=== PATIENT | female | born 1985 | race Caucasian/White ===

== ENCOUNTER 2017-04-30 07:31 | Emergency (ER) | payer MEDICAID ==
[~2017-04-30] VITALS: Ht 170.2 cm; Wt 123.0 kg
[~2017-04-30 07:31] MED LIST: ACET325 PO; DOCO200C PO; IBUP600 PO; ZANT300T PO
[2017-04-30 07:36] VITALS: BP 161/107; PULSE 122; RESP 16; TEMP 98.2; O2SAT 95
[2017-04-30] MEDS ORDERED: MIREIUD I-UTERINE (07:39)
[2017-04-30] MEDS ORDERED: SODIUM CHLOR 0.9% 1000 ML INJ 1,000 ML IV ONE ×2 (07:55→09:15)
[2017-04-30] MEDS ORDERED: SODIUM CHLORIDE 0.9% FLUSH 10 ML FLUSH IVF PRN (08:00)
[2017-04-30] MEDS ORDERED: ONDANSETRON HCL 4 MG/2 ML VIAL IV PUSH ONE (08:00)
--- NOTE | 2017-04-30 08:01 | PD ---
HPI . Vomiting Chief Complaint: Cold / Flu Symptoms Time Seen by Provider: 07:46 Travel History International Travel<30 days: No Contact w/Intl Traveler<30days: No Traveled to known affect area: No History of Present Illness HPI This patient presents with a chief complaint of vomiting. Onset was 3 days ago. She states that she really didn't have very much vomiting 2 days ago but it started again yesterday. She reports approximately 5 episodes of emesis today. She describes the emesis as frothy and thick. She does not describe to bilious emesis. She reports a couple of loose stools this morning. She does not really have nausea. She denies abdominal pain. She has a cough but does not have any shortness of breath or chest pain. Her emesis for the last 2 days has been associated with cough. However, she reports episodic emesis for the last year or so. The emesis that she's had the last few days is different. PFSH Past Medical History Diminished Hearing: No Immunizations Current: No Influenza Vaccination: No ?: Not LMP: mirena : 0 Past Surgical History Surgical History: No Previous Surgery Social History Alcohol Use: No Tobacco Use: No Substance Use: No Allergies-Medications (Allergen,Severity, Reaction): Coded Allergies: bee venom protein (honey bee) (Unverified Allergy, Severe, 04/30/17) Reported Meds & Prescriptions Reported Meds & Active Scripts Active Promethazine-Dextromethorphan Liq (Dextromethorphan-Promethazine Liq) 6.25-15 Mg /5 Ml Syrp 10 Ml PO Q6HR Zofran (Ondansetron HCl) 4 Mg Tab 4 Mg PO Q6HR PRN Reported Mirena (Levonorgestrel (Iud)) 20 Mcg/24 Hour (5 Years) Iud 1 Ea I-UTERINE ONCE Review of Systems Except as stated in HPI: all other systems reviewed are Neg General / Constitutional: No: Fever, Chills Cardiovascular: No: Chest Pain or Discomfort Respiratory: Positive: Cough, No: Shortness of Breath Gastrointestinal: Positive: Vomiting, Diarrhea, No: Abdominal Pain Physical Exam Narrative GENERAL: Patient has a very deep cough which is frequently followed by dry heaves. SKIN: warm/dry. Normal color. HEAD: Normocephalic. Atraumatic. EYES: Pupils equal and round. No scleral icterus. No injection or drainage. ENT: No nasal bleeding or discharge. Mucous membranes pink and moist. NECK: Trachea midline. Full range of motion without pain.. CARDIOVASCULAR: Sinus tachycardia at about 120. RESPIRATORY: No accessory muscle use. Clear to auscultation. Breath sounds equal bilaterally. GASTROINTESTINAL: Abdomen soft. Nontender. Bowel sounds present. Nondistended. MUSCULOSKELETAL: No obvious deformities. NEUROLOGICAL: Awake and alert. No obvious cranial nerve deficits. Motor grossly within normal limits. Normal speech. PSYCHIATRIC: Appropriate mood and affect; insight and judgment normal. Data Data Last Documented VS Vital Signs Date Time Temp Pulse Resp B/P (MAP) Pulse Ox O2 Delivery O2 Flow Rate FiO2 04/30/17 09:06 97 18 98 Room Air 04/30/17 07:36 98.2 Orders Orders Complete Blood Count With Diff (04/30/17 07:55) Comprehensive Metabolic Panel (04/30/17 07:55) Urinalysis - C+S If Indicated (04/30/17 07:55) Iv Access Insert/Monitor (04/30/17 07:55) Ondansetron Inj (Zofran Inj) (04/30/17 08:00) Sodium Chlor 0.9% 1000 Ml Inj (Ns 1000 M (04/30/17 07:55) Sodium Chloride 0.9% Flush (Ns Flush) (04/30/17 08:00) Chest, Pa & Lat (04/30/17 07:55) Ed Urine Pregnancytest Poc (04/30/17 07:55) Sodium Chlor 0.9% 1000 Ml Inj (Ns 1000 M (04/30/17 09:15) Labs Laboratory Tests Test 04/30/17 08:00 04/30/17 08:05 White Blood Count 15.6 TH/MM3 Red Blood Count 5.27 MIL/MM3 Hemoglobin 14.9 GM/DL Hematocrit 45.6 % Mean Corpuscular Volume 86.5 FL Mean Corpuscular Hemoglobin 28.3 PG Mean Corpuscular Hemoglobin Concent 32.7 % Red Cell Distribution Width 12.5 % Platelet Count 221 TH/MM3 Mean Platelet Volume 9.0 FL Neutrophils (%) (Auto) 81.6 % Lymphocytes (%) (Auto) 9.3 % Monocytes (%) (Auto) 5.2 % Eosinophils (%) (Auto) 3.1 % Basophils (%) (Auto) 0.8 % Neutrophils # (Auto) 12.8 TH/MM3 Lymphocytes # (Auto) 1.4 TH/MM3 Monocytes # (Auto) 0.8 TH/MM3 Eosinophils # (Auto) 0.5 TH/MM3 Basophils # (Auto) 0.1 TH/MM3 CBC Comment DIFF FINAL Differential Comment Blood Urea Nitrogen 21 MG/DL Creatinine 0.89 MG/DL Random Glucose 139 MG/DL Total Protein 8.0 GM/DL Albumin 3.7 GM/DL Calcium Level 8.7 MG/DL Alkaline Phosphatase 80 U/L Aspartate Amino Transf (AST/SGOT) 27 U/L Alanine Aminotransferase (ALT/SGPT) 62 U/L Total Bilirubin 0.5 MG/DL Sodium Level 139 MEQ/L Potassium Level 3.6 MEQ/L Chloride Level 103 MEQ/L Carbon Dioxide Level 26.4 MEQ/L Anion Gap 10 MEQ/L Estimat Glomerular Filtration Rate 74 ML/MIN Urine Color YELLOW Urine Turbidity CLEAR Urine pH 5.5 Urine Specific [place] 1.023 Urine Protein TRACE mg/dL Urine Glucose (UA) NEG mg/dL Urine Ketones NEG mg/dL Urine Occult Blood TRACE Urine Nitrite NEG Urine Bilirubin NEG Urine Leukocyte Esterase NEG Urine Squamous Epithelial Cells 6-8 /hpf Microscopic Urinalysis Comment CULT NOT INDICATED MDM Medical Decision Making Medical Screen Exam Complete: Yes Emergency Medical Condition: Yes Differential Diagnosis Differential diagnosis includes but is not limited to viral gastritis, food poisoning, pancreatitis, pneumonia, hepatitis, acute coronary syndrome, Narrative Course This patient presents with posttussive emesis for the last several days. She is tachycardic. She'll be treated with IV fluids and IV Zofran while awaiting her workup. Chest x-rays is being done to rule out pneumonia. Basic labs have also been ordered including a UA and test. CBC & BMP Diagram 04/30/17 08:00 Total Protein 8.0, Albumin 3.7, Calcium Level 8.7, Alkaline Phosphatase 80, Aspartate Amino Transf (AST/SGOT) 27, Alanine Aminotransferase (ALT/SGPT) 62 H, Total Bilirubin 0.5 UA is neg. She reports that she feels much better following 1 L fluid and IV Zofran. She has not yet had the urge to urinate. She will be given a second liter fluid. Last Impressions Chest X-Ray 04/30/17 [id number] Signed Impressions: Service Date/Time: Sunday, April 30, 2017 08:09 - CONCLUSION: 1. No acute cardiopulmonary disease. Cam Wilkerson MD Diagnosis Primary Impression: Post-tussive emesis Additional Impression: Dehydration Patient Instructions: Acute Cough (ED), Acute Nausea and Vomiting (DC), General Instructions Med/Other Pt SpecificInfo: Prescription(s) given Scripts Dextromethorphan-Promethazine Liq (Promethazine-Dextromethorphan Liq) 6.25-15 Mg /5 Ml Syrp 10 ML PO Q6HR for cough, #120 ML Prov: Rosenda Ochoa MD 04/30/17 Ondansetron (Zofran) 4 Mg Tab 4 MG PO Q6HR Y for NAUSEA OR VOMITING, #10 TAB 0 Refills Prov: Rosenda Ochoa MD 04/30/17 Disposition: 01 DISCHARGE HOME Condition: Stable Rosenda Ochoa MD Apr 30, 2017 08:01
[2017-04-30 08:19] LABS: BILIRUBIN, URINE NEG (NEG); GLUCOSE,URINE NEG (NEG); KETONE, URINE NEG (NEG); NITRITE,URINE NEG (NEG); PH, URINE 5.5 (5.0-8.5); URINE LEUKOCYTE ESTERASE NEG (NEG)
[2017-04-30 08:21] LABS: AUTOMATED NEUTROPHIL # 12.8 TH/MM3 (1.8-7.7); BASOPHIL # 0.1 TH/MM3 (0-0.2); BASOPHIL % 0.8 % (0.0-2.0); EOSINOPHIL # 0.5 TH/MM3 (0-0.4); EOSINOPHIL % 3.1 % (0.0-4.0); HEMATOCRIT 45.6 % (35.0-46.0); HEMOGLOBIN 14.9 GM/DL (11.6-15.3); LYMPH % 9.3 % (9.0-44.0); LYMPHOCYTE # 1.4 TH/MM3 (1.0-4.8); MEAN CELL VOLUME 86.5 FL (80.0-100.0); MEAN CORPUSCULAR HEMOGLOBIN 28.3 PG (27.0-34.0); MEAN CORPUSCULAR HGB CONC 32.7 % (32.0-36.0); MONO % 5.2 % (0.0-8.0); MONOCYTE # 0.8 TH/MM3 (0-0.9); NEUT % 81.6 % (16.0-70.0); PLATELET COUNT 221 TH/MM3 (150-450); RED BLOOD COUNT 5.27 MIL/MM3 (4.00-5.30); RED CELL DISTRIBUTION WIDTH 12.5 % (11.6-17.2); WHITE BLOOD COUNT 15.6 TH/MM3 (4.0-11.0)
[2017-04-30 08:26] LABS: BLOOD, URINE TRACE (NEG); URINE COLOR YELLOW (YELLW/STRAW)
[2017-04-30 08:28] LABS: CHLORIDE 103 MEQ/L (98-107); SODIUM (NA) 139 MEQ/L (136-145)
[2017-04-30 08:34] LABS: ALBUMIN 3.7 GM/DL (3.4-5.0); BICARBONATE 26.4 MEQ/L (21.0-32.0); BLOOD UREA NITROGEN 21 MG/DL (7-18); CALCIUM 8.7 MG/DL (8.5-10.1); GLUCOSE,RANDOM 139 MG/DL (74-106)
[2017-04-30 08:37] LABS: ALT (GPT) 62 U/L (10-53); AST (GOT) 27 U/L (15-37); CREATININE 0.89 MG/DL (0.50-1.00); GLOMERULAR FILTRATION RATE 74 ML/MIN (>89)
[2017-04-30 08:39] LABS: TOTAL BILIRUBIN ADULT 0.5 MG/DL (0.2-1.0)
[2017-04-30 08:40] LABS: ALKALINE PHOSPHATASE 80 U/L (45-117)
[2017-04-30 09:06] VITALS: PULSE 97; RESP 18; O2SAT 98
--- NOTE | 2017-04-30 09:15 | RADRPT ---
EXAM DATE/TIME: 04/30/2017 08:09 [facility] COMPARISON: No previous studies available for comparison. INDICATIONS : Vomiting, cough. MEDICAL HISTORY : None. SURGICAL HISTORY : None. ENCOUNTER: Initial ACUITY: 4 - 6 days PAIN SCORE: 0/10 LOCATION: Bilateral chest FINDINGS: PA and lateral views of the chest demonstrate the lungs to be symmetrically aerated without evidence of mass, infiltrate or effusion. The cardiomediastinal contours are unremarkable. Osseous structure s are intact. CONCLUSION: 1. No acute cardiopulmonary disease. Cam Wilkerson MD on April 30, 2017 at 9:12 Board Certified Radiologist. This report was verified electronically.
[2017-04-30] MEDS ORDERED: ZOFR4TAB PO (09:34)
[2017-04-30] MEDS ORDERED: PROMSYP3 PO (09:34)
== END 2017-04-30 10:18 | disposition home or self-care (01) ==
LOC: PHED 07:31
DX: E86.0 Dehydration (principal); R11.10 Vomiting, unspecified
CPT/HCPCS: 71046; 80053; 81001; 84703; 85025; 96361; 96374; 99284; J2405; J7030

== ENCOUNTER 2017-05-30 06:47 | Emergency (ER) | payer MEDICAID ==
[~2017-05-30] VITALS: Ht 170.2 cm; Wt 124.0 kg
[~2017-05-30 06:47] MED LIST changes: -ACET325 PO; -DOCO200C PO; -IBUP600 PO; +MIREIUD I-UTERINE; +PROMSYP3 PO; -ZANT300T PO; +ZOFR4TAB PO
[2017-05-30 06:51] VITALS: PULSE 114; RESP 16; TEMP 98; O2SAT 95
[2017-05-30] MEDS ORDERED: ONDANSETRON HCL 4 MG/2 ML VIAL IV PUSH ONE (07:15)
[2017-05-30] MEDS ORDERED: MORPHINE SULFATE 4 MG/ML INJ IV PUSH ONE (07:15)
--- NOTE | 2017-05-30 07:20 | PD ---
HPI Chief Complaint: GI Complaint Time Seen by Provider: 06:59 Travel History International Travel<30 days: No Contact w/Intl Traveler<30days: No Traveled to known affect area: No History of Present Illness HPI 31 y/o female presents with vomiting and right upper quadrant pain over the past couple of days. She states she has been experiencing this intermittently over the past couple weeks for quite a while. She states that last time she was here she had more nasal congestion and cough and she still has some but is having more vomiting and abdominal pain now. She denies any fever or other concurrent complaints other than intermittent nonbloody diarrhea. Quality is nonbloody. Severity is multiple episodes. She denies seeing a physician for this other than prior visit in the ER. She denies specific modifying factors that she can recall. PFS Past Medical History Medical History: Denies Significant Hx Diminished Hearing: No Immunizations Current: No Tetanus Vaccination: < 5 Years Influenza Vaccination: No ?: Not LMP: 2 DAYS : 0 Past Surgical History Surgical History: No Previous Surgery Social History Alcohol Use: No Tobacco Use: No Substance Use: Yes (mj) Allergies-Medications (Allergen,Severity, Reaction): Coded Allergies: bee venom protein (honey bee) (Unverified Allergy, Severe, 05/30/17) Reported Meds & Prescriptions Reported Meds & Active Scripts Active Zofran Odt (Ondansetron Odt) 4 Mg Tab 4 Mg SL Q6HR PRN Review of Systems Except as stated in HPI: all other systems reviewed are Neg Physical Exam Narrative GENERAL: 31-year-old female in no apparent distress SKIN: Focused skin assessment warm/dry. HEAD: Atraumatic. Normocephalic. EYES: Pupils equal and round. No scleral icterus. No injection or drainage. ENT: No nasal bleeding or discharge. Mucous membranes pink and moist. NECK: Trachea midline. No JVD. CARDIOVASCULAR: Regular rate and rhythm. No murmur appreciated. RESPIRATORY: No accessory muscle use. Clear to auscultation. Breath sounds equal bilaterally. GASTROINTESTINAL: Abdomen soft, non-tender, nondistended. NEUROLOGICAL: Awake and alert. No obvious cranial nerve deficits. Motor grossly within normal limits. Normal speech. PSYCHIATRIC: Appropriate mood and affect; insight and judgment normal. Data Data Last Documented VS Vital Signs Date Time Temp Pulse Resp B/P (MAP) Pulse Ox O2 Delivery O2 Flow Rate FiO2 05/30/17 07:59 16 05/30/17 07:56 95 147/87 (107) 97 Room Air 05/30/17 06:51 98.0 Orders Orders Complete Blood Count With Diff (05/30/17 07:00) Comprehensive Metabolic Panel (05/30/17 07:00) Urinalysis - C+S If Indicated (05/30/17 07:00) Lipase (05/30/17 07:00) Iv Access Insert/Monitor (05/30/17 07:00) Us Abdomen Gallbladder (05/30/17 ) Ed Urine Pregnancytest Poc (05/30/17 07:00) Ondansetron Inj (Zofran Inj) (05/30/17 07:15) Morphine Inj (Morphine Inj) (05/30/17 07:15) Chest, Pa & Lat (05/30/17 ) Ed Discharge Order (05/30/17 08:29) Labs Laboratory Tests Test 05/30/17 07:10 White Blood Count 10.4 TH/MM3 Red Blood Count 5.26 MIL/MM3 Hemoglobin 14.9 GM/DL Hematocrit 45.3 % Mean Corpuscular Volume 86.1 FL Mean Corpuscular Hemoglobin 28.4 PG Mean Corpuscular Hemoglobin Concent 33.0 % Red Cell Distribution Width 12.7 % Platelet Count 260 TH/MM3 Mean Platelet Volume 8.9 FL Neutrophils (%) (Auto) 73.8 % Lymphocytes (%) (Auto) 17.1 % Monocytes (%) (Auto) 5.6 % Eosinophils (%) (Auto) 2.8 % Basophils (%) (Auto) 0.7 % Neutrophils # (Auto) 7.6 TH/MM3 Lymphocytes # (Auto) 1.8 TH/MM3 Monocytes # (Auto) 0.6 TH/MM3 Eosinophils # (Auto) 0.3 TH/MM3 Basophils # (Auto) 0.1 TH/MM3 CBC Comment DIFF FINAL Differential Comment Urine Collection Type CLEAN CATCH Urine Color YELLOW Urine Turbidity CLEAR Urine pH 5.5 Urine Specific [place] 1.026 Urine Protein 30 mg/dL Urine Glucose (UA) NEG mg/dL Urine Ketones TRACE mg/dL Urine Occult Blood TRACE Urine Nitrite NEG Urine Bilirubin NEG Urine Leukocyte Esterase NEG Urine WBC 0-2 /hpf Urine Squamous Epithelial Cells 0-5 /hpf Urine Mucus FEW /lpf Microscopic Urinalysis Comment CULT NOT INDICATED Blood Urea Nitrogen 16 MG/DL Creatinine 0.87 MG/DL Random Glucose 125 MG/DL Total Protein 8.0 GM/DL Albumin 3.6 GM/DL Calcium Level 8.6 MG/DL Alkaline Phosphatase 85 U/L Aspartate Amino Transf (AST/SGOT) 21 U/L Alanine Aminotransferase (ALT/SGPT) 56 U/L Total Bilirubin 0.4 MG/DL Sodium Level 135 MEQ/L Potassium Level 3.8 MEQ/L Chloride Level 104 MEQ/L Carbon Dioxide Level 25.1 MEQ/L Anion Gap 6 MEQ/L Estimat Glomerular Filtration Rate 76 ML/MIN Lipase 308 U/L MDM Medical Decision Making Medical Screen Exam Complete: Yes Emergency Medical Condition: Yes Medical Record Reviewed: Yes (Past history confirmed, recent ER visit reviewed) Interpretation(s) CBC & BMP Diagram 05/30/17 07:10 Total Protein 8.0, Albumin 3.6, Calcium Level 8.6, Alkaline Phosphatase 85, Aspartate Amino Transf (AST/SGOT) 21, Alanine Aminotransferase (ALT/SGPT) 56 H, Total Bilirubin 0.4 Last 24 hours Impressions Chest X-Ray 05/30/17 0000 Signed Impressions: Service Date/Time: Tuesday, May 30, 2017 07:45 - CONCLUSION: No acute disease. Bernard Young MD Gallbladder ultrasound with enlarged liver, patient given copy for follow-up Differential Diagnosis Gastroenteritis, colitis, cholecystitis, cholelithiasis, pneumonia, URI... Narrative Course will check labs, ua, gallbladder ultrasound and dose with Zofran and morphine and reevaluate Labs within normal limits, urine no acute, chest x-ray no acute. Gallbladder ultrasound shows enlarged liver. No further emesis here, Patient denies any new complaints and states that they are feeling better. Patient happy with care , all questions answered. Patient knows that follow up is incumbent on them and to return to the emergency room immediately if new or worsening symptoms develop. Patient given strict return precautions, vitals reviewed and are normal , agrees to further workup as an outpatient. Diagnosis Primary Impression: Vomiting Qualified Codes: R11.10 - Vomiting, unspecified Additional Impression: Abdominal pain Qualified Codes: R10.11 - Right upper quadrant pain Patient Instructions: General Instructions Additional Instructions: return as needed, set up a primary, keep a blood pressure log, motrin with food as needed for pain Med/Other Pt SpecificInfo: Prescription(s) given Scripts Ondansetron Odt (Zofran Odt) 4 Mg Tab 4 MG SL Q6HR Y for Nausea/Vomiting, #10 TAB 0 Refills Prov: Daya Briseno MD 05/30/17 Disposition: 01 DISCHARGE HOME Condition: Stable Daya Briseno MD May 30, 2017 07:20
[2017-05-30 07:25] LABS: AUTOMATED NEUTROPHIL # 7.6 TH/MM3 (1.8-7.7); BASOPHIL # 0.1 TH/MM3 (0-0.2); BASOPHIL % 0.7 % (0.0-2.0); EOSINOPHIL # 0.3 TH/MM3 (0-0.4); EOSINOPHIL % 2.8 % (0.0-4.0); HEMATOCRIT 45.3 % (35.0-46.0); HEMOGLOBIN 14.9 GM/DL (11.6-15.3); LYMPH % 17.1 % (9.0-44.0); LYMPHOCYTE # 1.8 TH/MM3 (1.0-4.8); MEAN CELL VOLUME 86.1 FL (80.0-100.0); MEAN CORPUSCULAR HEMOGLOBIN 28.4 PG (27.0-34.0); MEAN PLATELET VOLUME 8.9 FL (7.0-11.0); MONO % 5.6 % (0.0-8.0); MONOCYTE # 0.6 TH/MM3 (0-0.9); NEUT % 73.8 % (16.0-70.0); PLATELET COUNT 260 TH/MM3 (150-450); RED BLOOD COUNT 5.26 MIL/MM3 (4.00-5.30); RED CELL DISTRIBUTION WIDTH 12.7 % (11.6-17.2); WHITE BLOOD COUNT 10.4 TH/MM3 (4.0-11.0)
[2017-05-30 07:28] LABS: BILIRUBIN, URINE NEG (NEG); BLOOD, URINE TRACE (NEG); GLUCOSE,URINE NEG (NEG); KETONE, URINE TRACE mg/dL (NEG); NITRITE,URINE NEG (NEG); PH, URINE 5.5 (5.0-8.5); URINE LEUKOCYTE ESTERASE NEG (NEG)
[2017-05-30 07:42] LABS: CHLORIDE 104 MEQ/L (98-107); SODIUM (NA) 135 MEQ/L (136-145)
[2017-05-30 07:45] LABS: MUCUS URINE FEW /lpf (OCC); URINE COLOR YELLOW (YELLW/STRAW); WBC, URINE 0-2 /hpf (0-5)
[2017-05-30 07:46] LABS: ALBUMIN 3.6 GM/DL (3.4-5.0); BICARBONATE 25.1 MEQ/L (21.0-32.0); BLOOD UREA NITROGEN 16 MG/DL (7-18); CALCIUM 8.6 MG/DL (8.5-10.1); GLUCOSE,RANDOM 125 MG/DL (74-106); SQUAMOUS EPITHELIAL CELL URINE 0-5 /hpf (0-5)
[2017-05-30 07:49] LABS: ALT (GPT) 56 U/L (10-53); AST (GOT) 21 U/L (15-37); CREATININE 0.87 MG/DL (0.50-1.00); GLOMERULAR FILTRATION RATE 76 ML/MIN (>89)
[2017-05-30 07:51] LABS: TOTAL BILIRUBIN ADULT 0.4 MG/DL (0.2-1.0)
[2017-05-30 07:52] LABS: ALKALINE PHOSPHATASE 85 U/L (45-117)
[2017-05-30 07:56] VITALS: BP 147/87; PULSE 95; RESP 16; O2SAT 97
[2017-05-30 07:59] VITALS: RESP 16
--- NOTE | 2017-05-30 08:06 | RADRPT ---
EXAM DATE/TIME: 05/30/2017 07:45 [facility] COMPARISON: CHEST PA & LAT, April 30, 2017, 8:09. INDICATIONS : Cough, congestion, nausea, vomiting, fever, right upper quadrant pain intermittently for a few weeks but constant for the last few days. MEDICAL HISTORY : None. SURGICAL HISTORY : None. ENCOUNTER: Initial ACUITY: 3 days PAIN SCORE: 6/10 LOCATION: chest FINDINGS: PA and lateral views of the chest demonstrate the lungs to be symmetrically aerated without evidence of mass, infiltrate or effusion. The cardiomediastinal contours are unremarkable. Osseous structure s are intact. CONCLUSION: No acute disease. Bernard Young MD on May 30, 2017 at 8:03 Board Certified Radiologist. This report was verified electronically.
--- NOTE | 2017-05-30 08:28 | RADRPT ---
EXAM DATE/TIME: 05/30/2017 07:57 [facility] COMPARISON: US ABDOMEN - GALLBLADDER, June 23, 2015, 20:17. INDICATIONS : Right upper quadrant pain. MEDICAL HISTORY : Right upper quadrant pain. SURGICAL HISTORY : None. ENCOUNTER: Subsequent ACUITY: 1 day PAIN SCORE: 3/10 LOCATION: Right upper quadrant MEASUREMENTS: LIVER: 17.4 cm length COMMON DUCT: 4 mm RIGHT KIDNEY: 11.8 x 5.1 x 6.4 cm FINDINGS: LIVER: The liver is enlarged and demonstrates mild diffuse increased echogenicity consistent with probable f atty infiltration or diffuse hepatocellular disease. No focal mass is noted. No biliary ductal dilata tion is noted. There is hepatopetal flow within the portal vein. COMMON DUCT: No intraluminal mass or stone visualized. GALLBLADDER: Contains no stones, demonstrates no wall thickening or pericholecystic fluid. PANCREAS: The visualized portions are within normal limits. RIGHT KIDNEY: No evidence of hydronephrosis, stone, or mass. CONCLUSION: Enlarged echogenic liver suggesting fatty infiltration or diffuse hepatocellular dise ase. Bernard Young MD on May 30, 2017 at 8:24 Board Certified Radiologist. This report was verified electronically.
[2017-05-30] MEDS ORDERED: ZOFR4TAB3 SL (08:30)
== END 2017-05-30 08:47 | disposition home or self-care (01) ==
LOC: PHED 06:47
DX: R10.11 Right upper quadrant pain (principal); R11.10 Vomiting, unspecified
CPT/HCPCS: 71046; 76705; 80053; 81001; 83690; 84703; 85025; 96374; 96375; 99285; J2270; J2405